=== PATIENT | female | born 1970 | race Caucasian/White ===

== ENCOUNTER → 2017-06-20 | Outpatient (CLI) | payer BC ==
[2017-06-20 17:05] LABS: Basophils % (A) 1 %; CH 31.3; CHCM 33.2; Eosinophils # (A) 0.1 k/uL (0-0.7); Eosinophils % (A) 3 %; HCT 37.6 % (34.0-46.0); HDW 2.08; HGB 12.7 gm/dL (11.4-16.0); Luc # (Auto) 0.11; Luc % (Auto) 2; Lymphocytes # (A) 1.2 k/uL (1.0-4.8); Lymphocytes % (A) 26 %; MCH 32.1 pg (25.0-35.0); MCHC 33.8 g/dL (31.0-37.0); MCV 94.7 fL (80.0-100.0); Mean Platelet Volume 7.3; Monocytes # (A) 0.3 k/uL (0-1.0); Monocytes % (A) 6 %; Neutrophils # (A) 2.9 k/uL (1.3-7.7); Neutrophils % (A) 62 %; RBC 3.97 m/uL (3.80-5.40); RDW 12.8 % (11.5-15.5); WBC 4.6 k/uL (3.8-10.6); WBC (Perox) 4.81
[2017-06-21 01:27] LABS: Iron 80 ug/dL (50-170); Iron Saturation 29.63 (12.00-45.00); Total Iron Binding Capacity 270 ug/dL (228-460)
== END | disposition home or self-care (01) ==
LOC: LABWHC1 16:44
PROVIDERS: ATTEND Physician Assistant
DX: E03.9 Hypothyroidism, unspecified (principal); E61.1 Iron deficiency; Z83.49 Family history of other endocrine, nutritional and metabolic diseases
CPT/HCPCS: 36415; 82728; 83540; 83550; 84439; 84443; 84481; 85025; 86376

== ENCOUNTER 2017-07-08 10:21 | Emergency (ER) | payer BC, OTHER ==
[2017-07-08 10:37] VITALS: RESP 16
--- NOTE | 2017-07-08 11:23 | ED ---
Head Injury HPI - General Chief complaint: Head Injury Stated complaint: [facility] Head Injury/fall Time Seen by Provider: 07/08/17 10:40 Source: patient, RN notes reviewed Mode of arrival: wheelchair Limitations: no limitations - History of Present Illness Initial comments: This 46-year-old female who states she was trying to sit on a wheeled stool when she missed the stool fell backwards hitting her head on the floor. She had no loss of consciousness over vision complains however Lexapro headache also later a frontal headache and right-sided neck pain. No loss of function to her upper or lower extremities. The pain is [id number]. MD Complaint: head injury, head pain, fall Place: work, school - Related Data Home Medications Medication Instructions Recorded Confirmed Levothyroxine Sodium [Synthroid] 100 mcg PO MOWEFR 11/27/14 07/08/17 Montelukast [Singulair] 10 mg PO HS 11/27/14 07/08/17 Norethindrone-E.estradiol-Iron 1 tab PO HS 11/27/14 07/08/17 [Minastrin 24 Fe Chewable Tab] OXcarbazepine [Trileptal] 900 mg PO HS 11/27/14 07/08/17 clonazePAM [KlonoPIN] 0.5 mg PO BID 11/27/14 07/08/17 Budesonide/Formoterol Fumarate 1 puff INHALATION RT-BID 07/08/17 07/08/17 [Symbicort 80-4.5 Mcg Inhaler] Citalopram Hydrobromide 20 mg PO HS 07/08/17 07/08/17 [Citalopram HBr] Escitalopram [Lexapro] 20 mg PO HS 07/08/17 07/08/17 Levalbuterol Hfa Inhaler [Xopenex 2 puff INHALATION RT-QID PRN 07/08/17 07/08/17 Hfa Inhaler] Levothyroxine Sodium [Synthroid] 88 mcg PO SUTUTHSA 07/08/17 07/08/17 OXcarbazepine [Trileptal] 600 mg PO BID 07/08/17 07/08/17 Previous Rx's Medication Instructions Recorded Ibuprofen [Motrin] 600 mg PO Q6HR PRN #20 tab 07/08/17 Allergies/Adverse reactions: Allergies Allergy/AdvReac Type Severity Reaction Status Date / Time corn Allergy Unknown Verified 07/08/17 10:46 latex Allergy Unknown Verified 07/08/17 10:46 peanut Allergy Anaphylaxis Verified 07/08/17 10:46 soy Allergy Unknown Verified 07/08/17 10:46 Sulfa (Sulfonamide Allergy Anaphylaxis Verified 07/08/17 10:46 Antibiotics) theophylline [From Quibron] Allergy Unknown Verified 07/08/17 10:46 amoxicillin AdvReac Diarrhea Verified 07/08/17 10:46 ipratropium bromide AdvReac Chest Pain Verified 07/08/17 10:46 [From Atrovent] "ALL GROUND NUTS" Allergy Unknown Uncoded 07/08/17 10:46 Review of Systems ROS Statement: Those systems with pertinent positive or pertinent negative responses have been documented in the HPI. ROS Other: All systems not noted in ROS Statement are negative. Past Medical History Past Medical History: Asthma History of Any Multi-Drug Resistant Organisms: None Reported Additional Past Surgical History / Comment(s): laparoscopy, D/C Past Psychological History: Bipolar Smoking Status: Never smoker Past Alcohol Use History: None Reported Past Drug Use History: None Reported General Exam - General Exam Comments Initial Comments: This a well-developed well-nourished awake alert oriented 3 female she does demonstrate a [place] Coma Scale of 15 Limitations: no limitations General appearance: alert, in no apparent distress Head exam: Present: normocephalic, other (Tenderness palpation of the occipital scalp and over the right lateral neck musculature no spinous process tenderness) Eye exam: Present: normal appearance, PERRL, EOMI. Absent: scleral icterus, conjunctival injection, periorbital swelling ENT exam: Present: normal exam, mucous membranes moist Neck exam: Present: normal inspection, tenderness, full ROM, other (As above). Absent: meningismus, lymphadenopathy Respiratory exam: Present: normal lung sounds bilaterally. Absent: respiratory distress, wheezes, rales, rhonchi, stridor Cardiovascular Exam: Present: regular rate, normal rhythm, normal heart sounds. Absent: systolic murmur, diastolic murmur, rubs, gallop, clicks GI/Abdominal exam: Present: soft, normal bowel sounds. Absent: distended, tenderness, guarding, rebound, rigid Extremities exam: Present: normal inspection, full ROM, normal capillary refill. Absent: tenderness, pedal edema, joint swelling, calf tenderness Back exam: Present: normal inspection Neurological exam: Present: alert, oriented X3, CN II-XII intact Psychiatric exam: Present: normal affect, normal mood Skin exam: Present: warm, dry, intact, normal color. Absent: rash Course Vital Signs 07/08/17 10:32 Temperature 97 F L Pulse Rate 65 Respiratory 16 Rate Blood Pressure 115/56 O2 Sat by Pulse 100 Oximetry Medical Decision Making - Medical Decision Making I did discuss findings with the patient she'll be discharged she was instructed about using ice for next 24-48 hours to affected areas Tylenol or ibuprofen for pain - Lab Data Lab Results 07/08/17 Range/Units 11:42 POC Glucose (mg/dL) 92 (75-99) mg/dL POC Glu [employer] ID Rusty Cho - Radiology Data Radiology results: report reviewed (I did review the imaging and reports no acute findings are seen.), image reviewed Disposition Clinical Impression: Scalp contusion, Cervical strain Disposition: HOME SELF-CARE Condition: Good Instructions: Scalp Contusion in Adults (ED), Cervical Strain (ED) Prescriptions: Ibuprofen [Motrin] 600 mg PO Q6HR PRN #20 tab PRN Reason: Pain Referrals: Naren Washburn MD [Primary Care Provider] - 1-2 days
[2017-07-08 11:50] LABS: Glucose,Whole Blood 92 mg/dL (75-99)
--- NOTE | 2017-07-08 11:58 | CT ---
EXAMINATION TYPE: CT brain rena rodriguez con DATE OF EXAM: 07/08/2017 COMPARISON: NONE HISTORY: Head injury/fall with headache and posterior neck pain. CT DLP: 1405 mGycm. Automated Exposure Control for Dose Reduction was Utilized. TECHNIQUE: CT scan of the head and cervical spine are performed without contrast. FINDINGS: There is no acute intracranial hemorrhage, mass effect, or midline shift identified. The ventricles and sulci are within normal limits in size. The globes are intact and the visualized sin uses are clear. The calvarium is intact Cervical spine is visualized in its entirety from C1 through upper thoracic levels and demonstrates r eversal of normal cervical curvature without evidence of acute fracture or dislocation. Prevertebral soft tissue appears within normal limits. The C1-C2 articulation is within normal limits on the cor onal images. Vertebral body heights are maintained. There is mild disc space narrowing C5-C6 and C6-C7 levels. The re is focal central disc herniation C5-C6 level effacing anterior thecal sac on axial image 56. There is posterior spur disc complex C6-C7 level mildly effacing anterior thecal sac on sagittal and axial images. Axial images show left-sided uncovertebral facet degenerative changes C3-C4 and C4-C5 level contributing to mild and moderate neural foraminal narrowing respectively at these levels. Mild apica l scarring is present bilaterally. IMPRESSION: 1. There is no acute fracture or dislocation evident in the cervical spine. 2. No acute intracranial hemorrhage or midline shift is seen.
[2017-07-08 12:36] VITALS: BP 116/64; PULSE 64; TEMP 98.5
== END 2017-07-08 12:35 | disposition home or self-care (01) ==
LOC: EC 10:21
DX: S16.1XXA Strain of muscle, fascia and tendon at neck level, initial encounter (principal); S00.03XA Contusion of scalp, initial encounter; J45.909 Unspecified asthma, uncomplicated; F31.9 Bipolar disorder, unspecified; Z79.51 Long term (current) use of inhaled steroids; Z79.3 Long term (current) use of hormonal contraceptives; Z79.899 Other long term (current) drug therapy; Z91.010 Allergy to peanuts; Z91.018 Allergy to other foods; Z88.0 Allergy status to penicillin; Z91.040 Latex allergy status; Z88.1 Allergy status to other antibiotic agents; Z88.2 Allergy status to sulfonamides; W18.00XA Striking against unspecified object with subsequent fall, initial encounter; Y92.219 Unspecified school as the place of occurrence of the external cause; Y99.0 Civilian activity done for income or pay
CPT/HCPCS: 36415; 70450; 72125; 99284

== ENCOUNTER → 2017-11-25 | Outpatient (CLI) | payer BC ==
[2017-11-25 16:19] LABS: Vitamin D 25 Hydroxy 31.9 ng/mL (30.0-100.0)
[2017-11-25 19:15] LABS: ACTH 28.8 pg/mL (0.00-45.99)
== END | disposition home or self-care (01) ==
LOC: LABWHC1 08:52
PROVIDERS: ATTEND Internal Medicine Endocrinology, Diabetes & Metabolism
DX: R53.83 Other fatigue (principal)
CPT/HCPCS: 36415; 82024; 82306; 82533; 82607; 84146

== ENCOUNTER → 2018-03-17 | Outpatient (CLI) | payer BC | END | disposition home or self-care (01) | LOC: LABWHC1 11:23 | PROVIDERS: ATTEND Internal Medicine Endocrinology, Diabetes & Metabolism | DX: E03.8 Other specified hypothyroidism (principal) | CPT/HCPCS: 36415; 84443 ==

== ENCOUNTER → 2018-05-15 | Outpatient (CLI) | payer BC ==
[2018-05-15 17:29] LABS: Basophils % (A) 1 %; Eosinophils # (A) 0.2 k/uL (0-0.7); Eosinophils % (A) 5 %; HCT 37.3 % (34.0-46.0); HGB 12.4 gm/dL (11.4-16.0); Lymphocytes # (A) 1.3 k/uL (1.0-4.8); Lymphocytes % (A) 33 %; MCH 31.8 pg (25.0-35.0); MCHC 33.3 g/dL (31.0-37.0); MCV 95.3 fL (80.0-100.0); Mean Platelet Volume 6.3; Monocytes # (A) 0.2 k/uL (0-1.0); Monocytes % (A) 5 %; Neutrophils # (A) 2.1 k/uL (1.3-7.7); Neutrophils % (A) 55 %; Platelet Count 167 k/uL (150-450); RBC 3.91 m/uL (3.80-5.40); RDW 12.8 % (11.5-15.5); WBC 3.9 k/uL (3.8-10.6)
== END | disposition home or self-care (01) ==
LOC: LABPAT 16:27
PROVIDERS: ATTEND Obstetrics & Gynecology
DX: Z01.812 Encounter for preprocedural laboratory examination (principal); N93.8 Other specified abnormal uterine and vaginal bleeding
CPT/HCPCS: 85025

== ENCOUNTER 2018-05-22 06:20 | Day surgery (SDC) | payer BC ==
[2018-05-19 11:13] VITALS: BMI 24.5
--- NOTE | 2018-05-19 12:04 | HP ---
HISTORY AND PHYSICAL DATE OF SURGERY: 05/22/2018 HISTORY OF PRESENT ILLNESS: The patient is a 47-year-old 0, para 0, who presents with a history of very irregular bleeding pattern over the last 6-7 months with a history of similar problems in the past. She underwent hysteroscopy with D and C approximately a year ago, which failed to demonstrate any pathologic findings other than the uterine cavity was fairly small, making the ablation potentially difficult. She has been using oral contraceptive pill in the standard fashion for several years running but has continued to bleed through this. She has a history of significant endometriosis in the past and may have some internal scarring issues as well. She has requested NovaSure endometrial ablation with laparoscopic bilateral tubal occlusion using Filshie clips. PAST MEDICAL HISTORY: Significant for asthma as well as bipolar disorder. She has a history of endometriosis, hypothyroidism, and psoriasis. PAST SURGICAL HISTORY: Significant only for laparoscopy in 1993 and 2000, done for endometriosis. She also underwent a hysteroscopy with D and C in the last several years, which was benign in nature. There were no anesthetic concerns. OBSTETRICAL HISTORY: 0, para 0, with a longstanding history of infertility, though she has been on oral contraceptive pills for some time to control bleeding as well. GYNECOLOGIC HISTORY: Unremarkable with the exception of a history of endometriosis as previously noted. FAMILY HISTORY: Noncontributory. SOCIAL HISTORY: The patient is and works as a speech therapist. She is a nonsmoker and denies any significant alcohol or any other social concerns. CURRENT MEDICATIONS: 1. Celexa 20 mg daily. 2. Cryselle oral contraceptive pill daily. 3. Klonopin 1 mg, 1 in the morning and 1-1/2 in the evening. 4. Singulair daily. 5. Symbicort 2 times daily. 6. Synthroid 88 mcg 6 days a week with 100 mcg once a week. 7. Trileptal twice daily. ALLERGIES: AMOXICILLIN caused the diarrhea, ATROVENT causes shortness of breath. She also has a known LATEX allergy leading to a rash. QUIBRON causes tachycardia and syncope, and SULFA caused possible anaphylaxis. REVIEW OF SYSTEMS: Confined to history of present illness. PHYSICAL EXAMINATION: Vital signs are stable. The patient is afebrile. HEENT demonstrates PERRLA, EOMI, her oropharynx is clear. Her neck is supple and without adenopathy and the thyroid is normal to palpation. Her heart has regular rhythm and rate without murmur. Her lungs are clear to auscultation bilaterally in all funez. Her abdomen is nondistended, has normoactive bowel sounds, soft, nontender, and without any masses to include hepatosplenomegaly, or hernias. Her extremities are without any cyanosis, clubbing, or edema and are nontender to palpation bilaterally. Bimanual pelvic examination demonstrates normal external genitalia and BUS with normal vaginal mucosa and cervix to inspection. There is no cervical motion tenderness. The uterus is approximately 4-5 weeks in size, mid plane, mobile, nontender, and normal in shape. The uterus sounded to approximately 7 cm with endometrial biopsy which was benign in nature. The adnexa are normal and nontender without mass bilaterally. ASSESSMENT AND PLAN: 1. Dysfunctional uterine bleeding. 2. Undesired fertility: We discussed alternatives and she has opted to proceed with laparoscopic bilateral tubal occlusion using Filshie clips as well as diagnostic hysteroscopy with NovaSure endometrial ablation. The risks and complications of the procedures were discussed at length including the risk for bleeding, bleeding requiring transfusion, infection, and injury to local structures to specifically include the bowel, bladder, and ureters as regards to the hysteroscopy and uterine perforation, Asherman syndrome, and possible hematometra as regards the endometrial ablation. She has understood all this and agreed to proceed. We are scheduled for the morning of Tuesday, May 22, 2018 for the procedures as outlined above. MMODL / IJN: [id number] /
[~2018-05-22 06:20] MED LIST: DEXAMETHASONE SOD PHOSPHATE 10 MG/ML 1 ML VIAL IV ONE; HYDROmorphone 0.5 MG/0.5 ML SYRINGE IVP PRN; MIDAZOLAM 2 MG/2 ML VIAL IV PRN; ONDANSETRON 4 MG/2 ML VIAL IVP ONE; Pre Op ABX Message 1 EACH MISC MISCELLANE ONE
[2018-05-22 06:52] LABS: Glucose,Whole Blood 90 mg/dL (75-99)
[2018-05-22] MEDS: LACTATED RINGERS 1,000 ML IV SCH ×3 (06:52→11:15)
[2018-05-22] MEDS ORDERED: LIDOCAINE 1% 20 ML VIAL (10MG/ML) FOR IV START INTRADERMA ONE (06:55)
[2018-05-22] MEDS ORDERED: GLYCOPYRROLATE 0.2 MG/ML 2 ML VIAL ONE (07:32)
[2018-05-22] MEDS ORDERED: fentaNYL (PF) 50 MCG/ML 2 ML AMP ONE (07:32)
[2018-05-22] MEDS ORDERED: PROPOFOL 10 MG/ML 20 ML VIAL IV ONE (07:32)
[2018-05-22] MEDS ORDERED: MIDAZOLAM 2 MG/2 ML VIAL ONE (07:32)
[2018-05-22] MEDS ORDERED: SUCCINYLCHOLINE CHLORIDE 100 MG/5 ML SYR IV ONE (07:32)
[2018-05-22] MEDS ORDERED: LIDOCAINE 1% INJ 10MG/ML (20 ML MDV) ONE (07:32)
[2018-05-22] MEDS ORDERED: KETOROLAC 30 MG/ML 1 ML VIAL ONE (07:32)
[2018-05-22] MEDS ORDERED: ALBUTEROL INHALER 60 PUFF/8 GM INHALER INHALATION ONE (07:32)
[2018-05-22] MEDS ORDERED: ROPIVACAINE 5 MG/ML 30 ML VIAL MISCELLANE ONE (07:49)
[2018-05-22 08:28] VITALS: TEMP 98
[2018-05-22] MEDS ORDERED: diphenhydrAMINE 50 MG/ML 1 ML VIAL IVP PRN (08:38)
[2018-05-22] MEDS ORDERED: Acetaminophen-Codeine 300-30mg TAB PO PRN ×2 (08:38)
[2018-05-22] MEDS ORDERED: SIMETHICONE 80 MG CHEWABLE PO PRN (08:38)
[2018-05-22] MEDS ORDERED: METOCLOPRAMIDE 5 MG/ML 2 ML VIAL IVP PRN (08:38)
[2018-05-22] MEDS ORDERED: ONDANSETRON 4 MG/2 ML VIAL IVP PRN (08:38)
[2018-05-22] MEDS ORDERED: KETOROLAC 30 MG/ML 1 ML VIAL IVP PRN (08:38)
[2018-05-22] MEDS ORDERED: IBUPROFEN 600 MG TAB PO PRN (08:38)
[2018-05-22] MEDS ORDERED: LACTATED RINGERS 1,000 ML IV SCH (08:45)
--- NOTE | 2018-05-22 08:49 | P.OP ---
Date of Procedure: 05/22/18 Preoperative Diagnosis: #1. Dysfunctional uterine bleeding #2. Undesired fertility Postoperative Diagnosis: Same plus #3. Fibroid uterus Procedure(s) Performed: #1. Laparoscopic bilateral tubal occlusion using Filshie clips #2. Diagnostic hysteroscopy #3. NovaSure endometrial ablation Anesthesia: JOSIAH Surgeon: Jc Power Estimated Blood Loss (ml): 5 IV fluids (ml): 500 Urine output (ml): 40 Pathology: none sent Condition: stable Disposition: PACU Operative Findings: Preoperative pelvic examination then showed a 4 week slightly retroverted mobile normal shaped uterus with normal adnexa bilaterally. Intraoperatively, the uterus sounded to 8 cm with a cervical length of approximately 3.5 cm. Using the laparoscope, there was some scarring in the left hemipelvis around the sigmoid colon with the ovary being relatively adhesed into its fossa. The right ovary was free as was the right fallopian tube. There was a small fundal fibroid on the top left of the uterus anteriorly. There was no significant evidence of endometriosis in the pelvis. The appendix, small bowel, large bowel , liver, gallbladder, and diaphragm appeared normal to inspection. A Filshie clip was placed approximately 2 cm from the cornu of the uterus on each side that difficulty. The hysteroscopic view of the uterus again demonstrated a very narrow cavity with the bilateral tubal ostia not entirely seen secondary to the acute angle at the top of the uterus. There is a small false cavity created directly in the middle likely from a dilator. There was no pathology noted. The settings for the NovaSure tool where a length of 4.5 cm, a width of 2.5 cm for a total power of 62 W. After a total run time of 41 seconds, the base unit read "procedure complete." The postprocedural result appeared to be excellent. The patient is a poor candidate for vaginal hysterectomy. Description of Procedure: The patient was prepped and draped in usual fashion after general endotracheal anesthesia was administered by the anesthesiologist. A weighted speculum was placed and the anterior lip of the cervix grasped with a single-tooth tenaculum. The uterus was sounded to 8 cm with a cervical length of 3.5 cm as noted above. An acorn cannula was placed for manipulation of the uterus. Attention was turned to the abdomen where a 5 mm incision was made through pre- existing scar in a semilunar fashion underneath the umbilicus allowing insertion of a 5 mm optical port under direct visualization without difficulty. A pneumoperitoneum was then established. A site was selected approximately 4- 5 cm above the pubic symphysis in the midline where an 8 mm incision was made in the transverse plane allowing insertion of an 8 mm optical trocar under direct visualization without difficulty. The probe and Trendelenburg positioning were utilized to sweep the bowel from the pelvis. The findings are as noted above with no significant evidence of ongoing endometriosis though there was some scarring in the left pelvis at the pelvic brim involving the sigmoid colon and the ovary which was adhesed into its fossa. The right tube and ovary were entirely free. The uterus did demonstrate one small fibroid on the left anterior fundal portion of the uterus which was less than 1 cm in size. The remainder of the abdominal examination is as documented above with entirely normal findings. The probe was replaced with a Filshie clip applicator which was utilized to place a Filshie clip across the entire thickness of the fallopian tube approximately 2 cm from the cornu on each side. All instrumentation was then removed after evacuating the pneumoperitoneum through the port sites. The skin incisions were closed with interrupted subcuticular stitches of 4-0 Vicryl followed by half-inch Steri-Strips placed with Mastisol. The incisions were infused with a total of 10 mL of ropivacaine equally divided between the 2 incisions. Attention was then returned to the vagina where the acorn cannula was removed and serial dilation carried out to admit the diagnostic hysteroscope. The findings were as noted above with no evidence of any pathology though there was a possible small shallow false track in the direct center of the fundus likely from a dilator. The angle of the uterine cavity towards the fallopian tube openings was acute and the openings could not be seen themselves. The cavity itself was again noted to be very narrow. Mom once adequate hysteroscopy had been carried out, the scope was set aside and further dilation carried out to admit the NovaSure tool. He was placed to the fundus of the uterus and opened. It was only able to be opened to approximately 1-1-1/2 cm which is inadequate to arm the tool. As result the settings for the tool were a total length of 4.5 cm, a total width of 2.5 cm allowing the tool to arm with a total power of 62 W. The cavity check was attempted and passed without difficulty. The tool was enabled and the run was started. After a run time of 41 seconds, the base unit read "procedure complete." It was closed, removed, and discarded. The diagnostic scope was replaced into the uterine cavity and the findings appear to be excellent as noted above. All instrumentation was removed. There was no ongoing bleeding from any of the port sites nor from the cervix or tenaculum sites. Estimated blood loss for the entire case was less than 5 mL. There are no complications. All sponge, instrument, and needle counts were correct. The patient tolerated the procedure well and proceeded to the recovery room in stable condition.
[2018-05-22 09:43] LABS: Glucose,Whole Blood 122 mg/dL (75-99)
[2018-05-22 10:28] VITALS: BP 102/86; PULSE 86; RESP 18
== END 2018-05-22 11:31 | disposition home or self-care (01) ==
LOC: OR 06:20
PROVIDERS: ATTEND Obstetrics & Gynecology
DX: N93.8 Other specified abnormal uterine and vaginal bleeding (principal); Z30.2 Encounter for sterilization; D25.9 Leiomyoma of uterus, unspecified; J45.909 Unspecified asthma, uncomplicated; F31.9 Bipolar disorder, unspecified; E03.9 Hypothyroidism, unspecified; L40.9 Psoriasis, unspecified; Z88.0 Allergy status to penicillin; Z88.8 Allergy status to other drugs, medicaments and biological substances; Z88.2 Allergy status to sulfonamides; Z91.040 Latex allergy status; Z79.3 Long term (current) use of hormonal contraceptives; Z79.51 Long term (current) use of inhaled steroids; Z79.890 Hormone replacement therapy; Z79.899 Other long term (current) drug therapy; Z87.42 Personal history of other diseases of the female genital tract
CPT/HCPCS: 58563; 58671; 81025; J2250; J1100; J2405; J2001; J3010; J1885; J2795; J0330; J2704

== ENCOUNTER → 2018-11-01 | Outpatient (CLI) | payer BC ==
[2018-11-01 16:00] LABS: T4, Free (Free Thyroxine) 0.6 ng/dL (0.80-1.80)
== END | disposition home or self-care (01) ==
LOC: LABWHC1 11:14
PROVIDERS: ATTEND Internal Medicine Endocrinology, Diabetes & Metabolism
DX: E03.8 Other specified hypothyroidism (principal); E55.9 Vitamin D deficiency, unspecified
CPT/HCPCS: 36415; 82306; 84439; 84443; 84480

== ENCOUNTER 2019-01-18 20:13 | Emergency (ER) | payer BC ==
[2019-01-18 20:19] VITALS: BP 99/62; PULSE 69; RESP 18; TEMP 98.3
[2019-01-18] MEDS ORDERED: IBUPROFEN 600 MG TAB PO STA (20:33)
--- NOTE | 2019-01-18 21:02 | ED ---
General Adult HPI - General Source: patient, RN notes reviewed Mode of arrival: ambulatory Limitations: no limitations <Ba Werner P - Last Filed: 01/18/19 21:38> <Mary Perez P - Last Filed: 01/18/19 22:06> - General Chief complaint: Extremity Injury, Lower Stated complaint: Lt Knee Injury Time Seen by Provider: 01/18/19 20:20 - History of Present Illness Initial comments: 48-year-old female since to the emergency department for a chief of left knee pain x 1 hour. Patient states she was walking her dog at an OB in class when the dog started to run. Patient states that she then twisted her left knee medially. Patient states she has pain along the medial aspect of the left knee. Patient states it is painful to bear weight on. Patient has not taken Motrin or Tylenol yet. Patient has no other complaints at this time including shortness of breath, chest pain, abdominal pain, nausea or vomiting, headache, or visual changes. (Ba Werner) - Related Data Home Medications Medication Instructions Recorded Confirmed Montelukast [Singulair] 10 mg PO HS 11/27/14 05/22/18 OXcarbazepine [Trileptal] 900 mg PO HS 11/27/14 05/22/18 Budesonide/Formoterol Fumarate 1 puff INHALATION RT-BID 07/08/17 05/22/18 [Symbicort 80-4.5 Mcg Inhaler] Citalopram Hydrobromide 20 mg PO HS 07/08/17 05/22/18 [Citalopram HBr] Escitalopram [Lexapro] 20 mg PO HS 07/08/17 05/22/18 Levalbuterol Hfa Inhaler [Xopenex 2 puff INHALATION RT-QID PRN 07/08/17 05/22/18 Hfa Inhaler] Levothyroxine Sodium [Synthroid] 88 mcg PO DAILY 07/08/17 05/22/18 OXcarbazepine [Trileptal] 600 mg PO QAM 07/08/17 05/22/18 Cryselle-28 1 tab PO HS 01/09/18 05/22/18 clonazePAM [KlonoPIN] 1 mg PO QAM 01/09/18 05/22/18 clonazePAM [KlonoPIN] 1.5 mg PO HS 01/09/18 05/22/18 Previous Rx's Medication Instructions Recorded Ibuprofen [Motrin] 600 mg PO Q6HR PRN #20 tab 07/08/17 Allergies Allergy/AdvReac Type Severity Reaction Status Date / Time corn Allergy CHEST Verified 05/22/18 06:45 TIGHTNESS latex Allergy RED SKIN, Verified 05/22/18 06:45 ITCHING peanut Allergy Anaphylaxis Verified 05/22/18 06:45 Sulfa (Sulfonamide Allergy Anaphylaxis Verified 05/22/18 06:45 Antibiotics) amoxicillin AdvReac Diarrhea Verified 05/22/18 06:45 ipratropium bromide AdvReac Chest Pain Verified 05/22/18 06:45 [From Atrovent] soy AdvReac Nausea & Verified 05/22/18 06:45 Vomiting & Diarrhea theophylline [From Quibron] AdvReac DIZZY, Verified 05/22/18 06:45 INDIGESTION "ALL GROUND NUTS" Allergy Dyspnea Uncoded 05/22/18 06:45 Review of Systems ROS Other: All systems not noted in ROS Statement are negative. <Ba Werner P - Last Filed: 01/18/19 21:38> ROS Other: All systems not noted in ROS Statement are negative. <Mary Perez P - Last Filed: 01/18/19 22:06> ROS Statement: Those systems with pertinent positive or pertinent negative responses have been documented in the HPI. Past Medical History Past Medical History: Asthma, Thyroid Disorder Additional Past Medical History / Comment(s): hypoglycemia. endometriosis. iron deficiency anemia. psoriasis History of Any Multi-Drug Resistant Organisms: None Reported Additional Past Surgical History / Comment(s): laparoscopy X2, D/C, uterine ablation Past Anesthesia/Blood Transfusion Reactions: No Reported Reaction Past Psychological History: Bipolar Smoking Status: Never smoker Past Alcohol Use History: None Reported Past Drug Use History: None Reported - Past Family History Father Family Medical History: Diabetes Mellitus, Deep Vein Thrombosis (DVT), Hypertension Mother Family Medical History: Hypertension <Ba Werner P - Last Filed: 01/18/19 21:38> General Exam Limitations: no limitations General appearance: alert, in no apparent distress Head exam: Present: atraumatic, normocephalic, normal inspection Eye exam: Present: normal appearance, PERRL, EOMI. Absent: scleral icterus, conjunctival injection, periorbital swelling ENT exam: Present: normal exam, mucous membranes moist Neck exam: Present: normal inspection, full ROM. Absent: tenderness, meningismus, lymphadenopathy Respiratory exam: Present: normal lung sounds bilaterally. Absent: respiratory distress, wheezes, rales, rhonchi, stridor Cardiovascular Exam: Present: regular rate, normal rhythm, normal heart sounds. Absent: systolic murmur, diastolic murmur, rubs, gallop, clicks Extremities exam: Present: tenderness (Tenderness noted to the medial aspect of the left knee. No tenderness posterior left knee.), normal capillary refill (Capillary refill less than 2 seconds, DP pulse 2+ in the left lower extremity), joint swelling (Animal edema present in the left knee, no erythema or signs of infection.), other (Sensation intact in the left lower extremity). Absent: full ROM (Patient has 90 of flexion of the left knee with full extension.), calf tenderness (Negative Homans sign, no tenderness of the left calf, no edema or erythema noted of the left calf) <Ba Werner P - Last Filed: 01/18/19 21:38> Course Vital Signs 01/18/19 20:14 Temperature 98.3 F Pulse Rate 69 Respiratory 18 Rate Blood Pressure 99/62 O2 Sat by Pulse 93 L Oximetry Medical Decision Making <Ba Werner P - Last Filed: 01/18/19 21:38> <Mary Perez P - Last Filed: 01/18/19 22:06> - Medical Decision Making 48-year-old female presents to the emergency department for a chief complaint Of left knee pain 1 hour. Patient was walking her dog when he started to run and she twisted her knee. Patient is medial joint tenderness with some edema. X- ray of the left knee is negative however there is concern for ligamentous or meniscal injury. Patient was put in a knee immobilizer. Prescribed crutches. Patient will follow-up with orthopedics in one to 2 days or return here if she has any worsening symptoms. Educated on rice therapy and Tylenol or Motrin for pain. (Ba Werner) I was available for consultation in the emergency department. The history and physical exam were done by the midlevel provider. I was consulted for this patient's care. I reviewed the case with the midlevel provider and based on their presentation of the patient, I agree with the assessment, medical decision making and plan of care as documented. (Mary Perez) Disposition Is patient prescribed a controlled substance at d/c from ED?: No Time of Disposition: 21:39 <Ba Werner P - Last Filed: 01/18/19 21:38> <Mary Perez P - Last Filed: 01/18/19 22:06> Clinical Impression: Knee pain, left Disposition: HOME SELF-CARE Condition: Good Instructions (If sedation given, give patient instructions): Knee Pain (ED) Additional Instructions: Please take Motrin and Tylenol for pain. Please rest ice and elevate the knee. Please follow-up with orthopedics in one to 2 days. Return to the emergency department if you have any worsening symptoms. Referrals: Mynor Gilmore DO [Medical Doctor] - 1-2 days Naren Washburn MD [Primary Care Provider] - 1-2 days
--- NOTE | 2019-01-18 21:09 | XR ---
EXAMINATION TYPE: XR knee complete LT DATE OF EXAM: 01/18/2019 COMPARISON: NONE HISTORY: Knee pain TECHNIQUE: 3 views FINDINGS: I see no fracture nor dislocation. Joint spaces are normal. There is no sign of joint effus ion. IMPRESSION: Negative left knee exam.
== END 2019-01-18 21:49 | disposition home or self-care (01) ==
LOC: EC 20:13
DX: M25.562 Pain in left knee (principal); J45.909 Unspecified asthma, uncomplicated; E07.9 Disorder of thyroid, unspecified; F31.9 Bipolar disorder, unspecified; Z88.0 Allergy status to penicillin; Z88.2 Allergy status to sulfonamides; Z88.8 Allergy status to other drugs, medicaments and biological substances; Z91.010 Allergy to peanuts; Z91.018 Allergy to other foods; Z91.040 Latex allergy status; Z79.51 Long term (current) use of inhaled steroids; Z79.899 Other long term (current) drug therapy; Z79.890 Hormone replacement therapy; Z79.3 Long term (current) use of hormonal contraceptives; X50.1XXA Overexertion from prolonged static or awkward postures, initial encounter; Y93.K1 Activity, walking an animal; Y92.89 Other specified places as the place of occurrence of the external cause
CPT/HCPCS: 99283

== ENCOUNTER → 2019-02-12 | Outpatient (CLI) | payer BC | END | disposition home or self-care (01) | LOC: LABWHC1 08:24 | PROVIDERS: ATTEND Internal Medicine Endocrinology, Diabetes & Metabolism | DX: E03.8 Other specified hypothyroidism (principal); E55.9 Vitamin D deficiency, unspecified | CPT/HCPCS: 36415; 82306; 84443 ==

== ENCOUNTER → 2020-10-18 | Outpatient (CLI) | payer BC ==
[2020-10-18 09:27] LABS: Basophils % (A) 1 %; Eosinophils # (A) 0.2 k/uL (0-0.7); Eosinophils % (A) 4 %; HCT 37.2 % (34.0-46.0); HGB 12.8 gm/dL (11.4-16.0); Lymphocytes # (A) 1.5 k/uL (1.0-4.8); Lymphocytes % (A) 34 %; MCH 31.5 pg (25.0-35.0); MCHC 34.4 g/dL (31.0-37.0); MCV 91.6 fL (80.0-100.0); Mean Platelet Volume 6.6; Monocytes # (A) 0.3 k/uL (0-1.0); Monocytes % (A) 6 %; Neutrophils # (A) 2.4 k/uL (1.3-7.7); Neutrophils % (A) 54 %; Platelet Count 149 k/uL (150-450); RBC 4.06 m/uL (3.80-5.40); WBC 4.4 k/uL (3.8-10.6)
[2020-10-18 12:24] LABS: ALT 25 U/L (8-44); AST 29 U/L (13-35); African American GFR (CKD) 116.3 (60.0-200.0); Alkaline Phosphatase 64 U/L (41-126); BUN/Creat Ratio 35.71 Ratio (12.00-20.00); Calcium 9.1 mg/dL (8.7-10.3); Carbon Dioxide 27.9 mmol/L (21.6-31.8); Chloride 110 mmol/L (96-109); Cholesterol 204 mg/dL (0-200); Globulin 1.8 g/dL (1.6-3.3); Glucose 98 mg/dL (70-110); Non-African American GFR(CKD) 100.3 (60.0-200.0); Potassium 4.2 mmol/L (3.5-5.5); Sodium 144 mmol/L (135-145); Total Bilirubin 0.4 mg/dL (0.2-1.2); Total Protein 6.3 g/dL (6.2-8.2); Triglycerides <50.0 mg/dL (0.0-149.0)
== END | disposition home or self-care (01) ==
LOC: LABMAIN 09:04
PROVIDERS: ATTEND Internal Medicine
DX: Z00.00 Encounter for general adult medical examination without abnormal findings (principal); J45.909 Unspecified asthma, uncomplicated; E03.9 Hypothyroidism, unspecified; E55.9 Vitamin D deficiency, unspecified
CPT/HCPCS: 36415; 80053; 80061; 82306; 82785; 84439; 84443; 84481; 85025

== ENCOUNTER → 2021-01-01 | Outpatient (CLI) | payer BC | END | disposition home or self-care (01) | LOC: LABWHC1 09:12 | PROVIDERS: ATTEND Internal Medicine | DX: E78.5 Hyperlipidemia, unspecified (principal) | CPT/HCPCS: 36415; 83721 ==

== ENCOUNTER → 2021-06-01 | Outpatient (CLI) | payer BC | END | disposition home or self-care (01) | LOC: LABWHC1 14:21 | PROVIDERS: ATTEND Internal Medicine Endocrinology, Diabetes & Metabolism | DX: E03.8 Other specified hypothyroidism (principal); E55.9 Vitamin D deficiency, unspecified | CPT/HCPCS: 36415; 82306; 84443 ==

== ENCOUNTER → 2021-11-30 | Outpatient (CLI) | payer BC | END | disposition home or self-care (01) | LOC: LABWHC1 16:32 | PROVIDERS: ATTEND Internal Medicine Endocrinology, Diabetes & Metabolism | DX: E03.8 Other specified hypothyroidism (principal); E55.9 Vitamin D deficiency, unspecified | CPT/HCPCS: 36415; 82306; 84443 ==

== ENCOUNTER → 2021-12-26 | Outpatient (CLI) | payer BC ==
[2021-12-26 15:51] LABS: Basophils # (A) 0.03 X 10*3/uL (0.00-0.10); Basophils % (A) 0.9 %; Eosinophils # (A) 0.09 X 10*3/uL (0.04-0.35); Eosinophils % (A) 2.8 %; HCT 35.6 % (37.2-46.3); HGB 11.5 g/dL (12.0-15.0); Immature Grans, Automated 0 %; Lymphocytes # (A) 1.11 X 10*3/uL (0.90-5.00); Lymphocytes % (A) 34.4 %; MCHC 32.3 g/dL (32.0-37.0); Mean Platelet Volume 9.4 fL (9.5-12.2); Monocytes # (A) 0.29 X 10*3/uL (0.20-1.00); NRBC Per 100 WBC 0 /100 WBCS (0.0-0.0); Neutrophils # (A) 1.71 X 10*3/uL (1.80-7.70); Neutrophils % (A) 52.9 %; Platelet Count 162 X 10*3/uL (140-440); RBC 3.83 X 10*6/uL (4.10-5.20); RDW 12.7 % (11.5-14.5); WBC 3.23 X 10*3/uL (4.50-10.00)
[2021-12-26 16:05] LABS: African American GFR (CKD) 121.5 (60.0-200.0); Albumin 4.5 g/dL (3.8-4.9); Albumin/Globulin Ratio 2.46 (1.60-3.17); Anion Gap 8.9 mmol/L (10.00-18.00); BUN/Creat Ratio 38.83 Ratio (12.00-20.00); Blood Urea Nitrogen 23.3 mg/dL (9.0-27.0); Carbon Dioxide 25.3 mmol/L (20.0-27.5); Globulin 1.8 g/dL (1.6-3.3); Non-African American GFR(CKD) 104.8 (60.0-200.0); Potassium 4.4 mmol/L (3.5-5.5); Total Bilirubin 0.3 mg/dL (0.30-1.20); Total Protein 6.3 g/dL (6.2-8.2)
[2021-12-28 04:41] LABS: Hepatitis BE Antibody Nonreactive (Nonreactive)
[2021-12-28 04:42] LABS: Hepatitis BE Antigen Nonreactive (Nonreacitve)
== END | disposition home or self-care (01) ==
LOC: LABWHC1 09:29
PROVIDERS: ATTEND Student in an Organized Health Care Education/Training Program
DX: L40.0 Psoriasis vulgaris (principal); L21.8 Other seborrheic dermatitis
CPT/HCPCS: 36415; 80053; 85025; 86480; 86707; 86803; 87350

== ENCOUNTER → 2022-02-09 | Outpatient (CLI) | payer BC ==
--- NOTE | 2022-02-11 08:39 | MM ---
Reason for exam: screening (asymptomatic). Last mammogram was performed 5 years and 7 months ago. History: Patient is postmenopausal and is nulliparous. Taking hormonal contraceptives for 24 years 2 months beginning at age 15. Physical Findings: A clinical breast exam by your physician is recommended on an annual basis and results should be correlated with mammographic findings. MG Screening Mammo w CAD Bilateral CC and MLO view(s) were taken. XCCL view(s) were taken of the left breast. Prior study comparison: July 13, 2016, bilateral MG screening mammo w CAD. May 23, 2012, bilateral digital screening mammo w/CAD. The breast tissue is heterogeneously dense. This may lower the sensitivity of mammography. No significant changes when compared with prior studies. ASSESSMENT: Benign, BI-RAD 2 RECOMMENDATION: Routine screening mammogram of both breasts in 1 year.
== END | disposition home or self-care (01) ==
LOC: RADMAMWWP 10:57
PROVIDERS: ATTEND Family Medicine
DX: Z12.31 Encounter for screening mammogram for malignant neoplasm of breast (principal); Z78.0 Asymptomatic menopausal state
CPT/HCPCS: 77067

== ENCOUNTER → 2023-05-31 | Outpatient (CLI) | payer BC ==
--- NOTE | 2023-05-31 16:56 | US ---
Normal Values (used in Ultrasound ) Aorta: Prox: 2.5cm upper limits At iliac: 1.5cm upper limits More than 2.5cm is ectatic and 3.0cm+ is aneurysmal. Abdominal Aortic Aneurysms: 3.0-3.9cm diameter: annual US 4.0-4.9cm diameter: 6 month US 5.0 +cm: elective aneurysm repair in appropriate surgical candidate Liver: < 16cm wnl, 17-18cm upper limits, >18cm enlarged Spleen: < 13cm Renal: 9 - 12cm GB Wall: < 0.3cm CBD: < 0.6cm or < 1.0cm post cholecystectomy Bladder Wall: < 0.3cm Post Void Residual: <50ml Portal Vein Diameter: < 13mm Splenic Vein Diameter: < 10mm Velocities: RA/AO ratio: < 3.5 RA velocity: < 180 cm/s Portal Vein: 16 - 40cm/sec Hepatic Artery Resistive Index: 0.55 - 0.8 Hepatic Artery Acceleration Time: <0.08 seconds Appendix: AP Diameter: < 6mm Uterus: < 10cm Endometrium: Proliferative (Day 6 ? 14): 4 ? 6mm Secretory (Day 15 ? 28): 7 ? 14mm Post Menopausal (and not symptomatic): up to 8mm Post Menopausal (with vaginal bleeding): upper limits <5mm Post Menopausal with HRT: upper limits 8 - 15mm Post Menopausal with tamoxifen: < 6mm (although 50% of those receiving tamoxifen have been reported t o have thickness >8mm) BPP Scorin. Breathin episode of breathing of 30 second duration in 30 minutes of scanning time 2. Movement: at least 2 discrete body movements in 30 minutes 3. Tone: 1 episode of active flexion/extension of limb 4. LIZ: > 5cm Cervix: TA > 3.0cm TV > 2.5cm Pylorus: Wall Thickness: < 4 mm Canal Length: < 15mm Prostate: Average Size = 4 x 3.5 x 2.5cm Volume = less than 30ml EXAMINATION TYPE: US extremity nonvasc complt RT DATE OF EXAM: 05/31/2023 COMPARISON: NONE CLINICAL INDICATION: Female, 52 years old with history of R22.30 LOCALIZED SWELLING, MASS AND LUMP, U NSPECIF; Lump right elbow TECHNIQUE: FINDINGS: Hyperechoic area seen .9 x .5 x .9 cm possible lipoma. IMPRESSION: Probable lipoma. Correlate clinically.
== END | disposition home or self-care (01) ==
LOC: RADUSWWP 12:58
PROVIDERS: ATTEND Family Medicine
DX: R22.30 Localized swelling, mass and lump, unspecified upper limb (principal)

== ENCOUNTER → 2023-11-24 | Outpatient (CLI) | payer BC ==
[2023-11-24 22:34] LABS: % Iron Saturation 31.88 (12.00-45.00); Ferritin 99.1 ng/mL (10.0-291.0); T4, Free (Free Thyroxine) 1.06 ng/dL (0.80-1.80)
== END | disposition home or self-care (01) ==
LOC: LABWHC1 11:33
PROVIDERS: ATTEND Internal Medicine Endocrinology, Diabetes & Metabolism
DX: E55.9 Vitamin D deficiency, unspecified (principal); E03.8 Other specified hypothyroidism
CPT/HCPCS: 36415; 82306; 82728; 83540; 83550; 84439; 84443

== ENCOUNTER → 2023-12-27 | Outpatient (CLI) | payer BC ==
--- NOTE | 2023-12-30 17:35 | MM ---
Reason for Exam: Screening (asymptomatic). Last mammogram was performed 1 year(s) and 10 month(s) ago. Patient History: Menarche at age 11. Patient has no children. Postmenopausal. Hormonal Contraceptives for 24 years, 2 months, from age 15 until age 47. Risk Values: Laurie 5 year model risk: 1.3%. NCI Lifetime model risk: 9.3%. Prior Study Comparison: 05/23/2012 Bilateral Screening Mammogram, [facility]. 07/13/2016 Bilateral Screening Mammogram, [facility]. 02/09/2022 Bilateral Screening Mammogram, [facility]. Tissue Density: The breasts are heterogeneously dense, which may obscure small masses. Findings: Analyzed By CAD. The pattern is symmetrical. No significant interval change is evident. No suspicious groups of microcalcifications, spiculated or lobular masses, architectural distortion or other secondary signs of malignancy are mammographically apparent. Overall Assessment: Negative, BI-RAD 1 Management: Screening Mammogram of both breasts in 1 year. A negative mammogram report should not preclude additional follow up of suspicious palpable abnormalities. Patient should continue monthly self breast exam. A clinical breast exam by your physician is recommended on an annual basis and results should be correlated with mammographic findings. Electronically signed and approved by: Rusty Morrell D.O. Radiologis
== END | disposition home or self-care (01) ==
LOC: RADMAMWWP 09:31
PROVIDERS: ATTEND Family Medicine
DX: Z12.31 Encounter for screening mammogram for malignant neoplasm of breast (principal); Z78.0 Asymptomatic menopausal state
CPT/HCPCS: 77063; 77067

== ENCOUNTER → 2024-07-11 | Outpatient (CLI) | payer BC | END | disposition home or self-care (01) | LOC: LABWHC1 15:25 | PROVIDERS: ATTEND Internal Medicine Endocrinology, Diabetes & Metabolism | CPT/HCPCS: 36415; 82306; 83036; 84443 ==